=== PATIENT | female | born 1945 | race American Indian/Alaskan Native ===

== ENCOUNTER 2018-01-11 17:52 | Emergency (ER) | payer MEDICARE ==
--- NOTE | 2018-01-11 18:02 | ED PDOC ---
Arrival/HPI - General Time Seen by Provider: 01/11/18 18:01 Historian: Patient - History of Present Illness Narrative History of Present Illness (Text): 01/11/18 18:22 72 year old female, whose PMH includes defibrillator placement, who presents to the emergency department complaining of listening to defibrillator device buzz intermittently since this morning at 06:00 AM. Patient reports 4 episodes of this happening and lasting a few seconds. Patient is currently asymptomatic and denies chest pain, shortness of breath, fever, abdominal pain, dizziness, nausea , vomiting, diarrhea, dysuria, or other complaints. PMD: Dr. Cao Field Machinist: Dr. Herman Santos Time/Duration: Prior to Arrival Symptom Onset: Sudden Symptom Course: Intermittent Context: Home Past Medical History - Provider Review Nursing Documentation Reviewed: Yes Family/Social History - Physician Review Nursing Documentation Reviewed: Yes Family/Social History: Unknown Family HX Allergies/Home Meds Allergies/Adverse Reactions: Allergies No Known Allergies Allergy (Verified 01/11/18 18:06) Home Medications: Home Meds Medication Instructions Recorded Confirmed Clopidogrel [Plavix] 75 mg PO DAILY 01/11/18 01/11/18 Metoprolol Succinate [Toprol Xl] 25 mg PO DAILY 01/11/18 01/11/18 Simvastatin [Simvastatin] 10 mg PO DAILY 01/11/18 01/11/18 amLODIPine [Norvasc] 5 mg PO DAILY 01/11/18 01/11/18 Review of Systems - Physician Review All systems were reviewed & negative as marked: Yes - Review of Systems Respiratory: absent: SOB Cardiovascular: Other (defibrillator implant sound activated ). absent: Chest Pain Gastrointestinal: absent: Abdominal Pain Physical Exam Vital Signs Reviewed: Yes Vital Signs Temp Pulse Resp BP Pulse Ox 01/11/18 20:21 63 18 146/66 100 01/11/18 18:02 97.7 F 76 18 127/75 97 Temperature: Afebrile Blood Pressure: Normal Pulse: Regular Respiratory Rate: Normal Appearance: Positive for: Well-Appearing, Non-Toxic, Comfortable Pain Distress: None Mental Status: Positive for: Alert and Oriented X 3 - Systems Exam Head: Present: Atraumatic, Normocephalic Pupils: Present: PERRL Extroacular Muscles: Present: EOMI Conjunctiva: Present: Normal Respiratory/Chest: Present: Clear to Auscultation, Good Air Exchange, Other ( left chest wall defibrillator with no tenderness or redness or swelling). No: Respiratory Distress, Accessory Muscle Use, Wheezes, Decreased Breath Sounds, Rales, Retracting, Rhonchi, Tender to Palpation Cardiovascular: Present: Regular Rate and Rhythm, Normal S1, S2. No: Murmurs Abdomen: Present: Normal Bowel Sounds. No: Tenderness, Distention, Peritoneal Signs, Rebound, Guarding Upper Extremity: Present: Normal Inspection, Normal ROM, NORMAL PULSES, Neurovascularly Intact, Capillary Refill < 2s. No: Cyanosis, Edema, Tenderness , Swelling, Erythema Neurological: Present: GCS=15, CN II-XII Intact, Speech Normal Skin: Present: Warm, Dry, Normal Color. No: Rashes Psychiatric: Present: Alert, Oriented x 3, Normal Insight, Normal Concentration Medical Decision Making ED Course and Treatment: 01/11/18 Impression: 72 year old female with unremarkable physical exam complaining of defibrillator implant activating sound. Differential Diagnosis included but are not limited to: Possible defibrillator malfunction Plan: -- EKG -- Labs -- Chest X-ray -- Reassess and disposition Progress Notes: 01/11/18 18:46 Patient realized that she had a name tag on from [employer] that has a magnet. She just found it in the ER. This could be the reason why her device was humming/ buzzing. No pain. EKG: NSR at 63 bpm with W aves in III, V1, V2, V3, TWI in 1 and avL; no previous to compare; no ST elevations 01/11/18 20:00 [employer] faxed the report of defibrillator, which states normal findings. There are no malfunctions or abnormal rhythm. [employer] will discuss the report with patient's metal lather Dr. Herman Santos [phone]. The report was reviewed with patient. She understands the importance of follow up with her metal lather and PMD Dr. Madison this week. She was told to refrain from wearing that magnetic name tag any longer. She was advised to return to the ED if she has any chest pain, lightheadedness, or any other concern. Implant Date Serial # Model # 16-Jun-2013 [id number] 16-Jun-2013 [id number] 16-Jun-2013 [id number] - Lab Interpretations Lab Results: 01/11/18 18:54 01/11/18 18:54 Lab Results 01/11/18 18:54: Sodium 143, Potassium 3.4 L, Chloride 105, Carbon Dioxide 26, Anion Gap 16, BUN 12, Creatinine 0.8, Est GFR ( Amer) > 60, Est GFR (Non- Af Amer) > 60, Random Glucose 116 H, Calcium 9.6, Magnesium 2.3 H, Total Bilirubin 0.5, AST 34, ALT 21, Alkaline Phosphatase 75, Lactate Dehydrogenase 455, Total Creatine Kinase 177, Troponin I < 0.01, Total Protein 8.8 H, Albumin 4.6, Globulin 4.2, Albumin/Globulin Ratio 1.1 01/11/18 18:54: WBC 5.6, RBC 5.00, Hgb 14.0, Hct 40.5, MCV 81.0, MCH 28.0, MCHC 34.6, RDW 14.9 H, Plt Count 280, MPV 10.5, Gran % 37.1 L, Lymph % (Auto) 51.6 H , Rutherford % (Auto) 8.0 H, Eos % (Auto) 2.8, Baso % (Auto) 0.5, Gran # 2.08, Lymph # (Auto) 2.9, Rutherford # (Auto) 0.5, Eos # (Auto) 0.2, Baso # (Auto) 0.03 - RAD Interpretation Radiology Orders: 01/11/18 18:21 CHEST PORTABLE [RAD] Stat Architectural Wood Model Maker: Radiologist - EKG Interpretation Interpreted by ED Physician: Yes Type: 12 lead EKG - Medication Orders Current Medication Orders: Discontinued Medications Potassium Chloride (K-Dur 20 Meq Er Tab) 40 meq PO STAT STA Stop: 01/11/18 19:47 Last Admin: 01/11/18 20:05 Dose: 40 meq - Scribe Statement The provider has reviewed the documentation as recorded by the [facility] Provider Scribe Attestation: All medical record entries made by the Scribe were at my direction and personally dictated by me. I have reviewed the chart and agree that the record accurately reflects my personal performance of the history, physical exam, medical decision making, and the department course for this patient. I have also personally directed, reviewed, and agree with the discharge instructions and disposition. Disposition/Present on Arrival - Present on Arrival Any Indicators Present on Arrival: No - Disposition Have Diagnosis and Disposition been Completed?: Yes Diagnosis: Malfunct impl card defb Disposition: HOME/ ROUTINE Disposition Time: 20:21 Patient Plan: Discharge Condition: IMPROVED Additional Instructions: LASHANDA LAI, thank you for letting us take care of you today. Your provider was Ambrose Galvan DO and you were treated for DEFIBRILLATOR BEEPING. The emergency medical care you received today was directed at your acute symptoms. If you were prescribed any medication, please fill it and take as directed. It may take several days for your symptoms to resolve. Return to the Emergency Department if your symptoms worsen, do not improve, or if you have any other problems. Please contact your doctor or call one of the physicians/clinics you have been referred to that are listed on the Patient Visit Information form that is included in your discharge packet. Bring any paperwork you were given at discharge with you along with any medications you are taking to your follow up visit. Our treatment cannot replace ongoing medical care by a primary care provider outside of the emergency department. Thank you for allowing the [facility] team to be part of your care today. If you had an X-Ray or CT scan: A Radiologist will review the ED reading if any change in treatment is needed we will contact you. If you had a blood, urine, or wound culture: It will take several days for the results, if any change in treatment is needed we will contact you. If you had an STI test: It will take 48 hours for the results. Please call after 1 week if you have not heard back. Referrals: Alka Madison MD [Primary Care Provider] - Follow up with primary Herman Coleman MD [Medical Doctor] - Follow up with primary Forms: [employer] (Georgian)
[2018-01-11 18:06] VITALS: RESP 18; TEMP 97.7
[2018-01-11 19:06] LABS: BASO # 0.03 K/mm3 (0.0-2.0); BASO % 0.5 % (0.0-3.0); EOS # 0.2 (0.0-0.7); EOS % 2.8 % (1.5-5.0); GRAN # 2.08 (1.4-6.5); GRAN % 37.1 % (50.0-68.0); LYMPH # 2.9 (1.2-3.4); LYMPH % 51.6 % (22.0-35.0); MEAN CORPUSCULAR HGB CONC 34.6 g/dl (31.0-37.0); MEAN PLATELET VOLUME 10.5 fl (7.0-11.0); MONO # 0.5 (0.1-0.6); RED CELL DISTRIBUTION WIDTH 14.9 % (11.5-14.5); WHITE BLOOD COUNT 5.6 10^3/ul (4.5-11.0)
[2018-01-11 19:42] LABS: ALB/GLOB RATIO 1.1 (1.1-1.8); ALBUMIN 4.6 g/dL (3.0-4.8); ALT/SGPT 21 U/L (7-56); AST/SGOT 34 U/L (14-36); BLOOD UREA NITROGEN 12 mg/dL (7-21); CALCIUM 9.6 mg/dL (8.4-10.5); GFR AFRICAN-AMERICAN > 60; GFR NON-AFRICAN AMERICAN > 60
[2018-01-11] MEDS ORDERED: Potassium Chloride 20 mEq ER Tab PO STA (19:46)
[2018-01-11 19:52] LABS: TROPONIN I < 0.01 ng/mL
[2018-01-11 20:27] VITALS: BP 146/66; PULSE 63; O2SAT 100
--- NOTE | 2018-01-12 08:40 | CARD ---
APPROVED REPORT EKG Measurement Heart [id number] <Conclusion> Normal sinus rhythm Inferior infarct, age undetermined Anteroseptal infarct, age undetermined STTW changes c/w ischemia
--- NOTE | 2018-01-12 10:34 | RAD ---
HISTORY: pacemaker buzzing COMPARISON: No prior. FINDINGS: LUNGS: There appears to be some minimal linear atelectasis/scarring left lung base extending to the diaphragmatic surface. PLEURA: No significant pleural effusion identified, no pneumothorax apparent. CARDIOVASCULAR: Mild cardiomegaly with left ventricular configuration. Re- demonstrated is bipolar pacemaker/defibrillator. OSSEOUS STRUCTURES: No significant abnormalities. VISUALIZED UPPER ABDOMEN: Normal. OTHER FINDINGS: None. IMPRESSION: Minimal linear scarring left lung base extending to the diaphragmatic surface
== END 2018-01-11 20:21 | disposition home or self-care (01) ==
LOC: ED 17:52
DX: T82.118A Breakdown (mechanical) of other cardiac electronic device, initial encounter (principal)